=== PATIENT | female | born 1975 | race Caucasian/White ===

== ENCOUNTER 2016-07-19 05:40 | Emergency (ER) | payer SELFPAY ==
--- NOTE | 2016-07-19 08:28 | DIAGNOSTIC IMAGING REPORT ---
PROCEDURE: CT ABDOMEN/PELVIS W/O CONTRAST INDICATION: Right flank and lower quadrant pain, initial encounter TECHNIQUE: Noncontrast axial images were obtained of the entire abdomen and pelvis with sagittal and coronal reformations. COMPARISON: None. FINDINGS: ABDOMEN: Lung base are clear. Heart size is normal. Cholecystectomy. Liver, pancreas, spleen and adrenal glands are normal. Normal kidneys and ureters without evidence of urolithiasis or hydronephrosis. Nonspecific bowel gas pattern. PELVIS: Sub mm right pelvic calcification, nonobstructing calculus versus phlebolith. Normal appendix. Uterus, adnexa and bladder are normal. No inflammatory changes or free fluid. Bones are unremarkable. IMPRESSION: 1. Right pelvic punctate sub mm nonobstructing calculus versus phlebolith 2. Cholecystectomy 3. Otherwise negative CT abdomen/pelvis 4. Results discussed with Dr. Rm All CT scans at this facility use dose modulation, iterative reconstruction, and/or weight-based dosing when appropriate to reduce radiation dose to as low as reasonably achievable.
--- NOTE | 2016-07-19 08:42 | ED NURSING NOTES ---
Clinical Report - Nurses [facility] [address] [place] [address] 07/19/2016 5:42 Patient: MAC MARQUEZ TRIAGE Triage time 0548 AM. Acuity: LEVEL 3. Chief Complaint: ABDOMINAL PAIN, NAUSEA and VOMITING. Alert. No acute distress. --05:52 Eduard Cruz R.N. 05:46 07/19/16. HR: 108. RR: 16. O2 saturation: 98%. Temp: 98.2 F (oral). Pain level now: 02/27. --05:52 Eduard Cruz R.N. 05:58 07/19/16. BP: 159/101 taken on the right arm, via an automated monitor, while lying. --05:58 Eduard Cruz R.N. Weight: 79.8 kg stated. Height/Length: 66 inches Per Patient. BMI: 28.4. --05:48 Eduard Cruz R.N. Medications None. --05:50 Eduard Cruz R.N. Allergies No Known Drug Allergy. --05:50 Eduard Cruz R.N. History Arrived by private vehicle. Historian: patient. Accompanied by family. This is a new problem and onset was gradual. (about 1.5 days). 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 PAST MEDICAL HX: Immunizations: up-to-date. Has had a tubal ligation. Denies current . SOCIAL HX: Current every day light tobacco smoker (cigarette)- less than 1/2 a pack per day. Alcohol use. (no). History of drug use. (no). FALL RISK ASSESSMENT: Fall risk assessment completed. No fall risk identified. NUTRITIONAL RISK ASSESSMENT: The nutritional risk assessment revealed no deficiencies. FUNCTIONAL ASSESSMENT: Functional assessment: no impairments noted. LEARNING NEEDS ASSESSMENT: The learning needs assessment revealed no barriers. SKIN INTEGRITY ASSESSMENT: Skin integrity risk assessment completed. No skin integrity risk identified. --05:52 Eduard Cruz R.N. Last oral intake by patient was liquid this morning (0530). --05:52 Eduard Cruz R.N. ( Patient presents to the ED with symptoms of right sided abdominal pain radiating down her left back and down her left leg. Patient states that the pain started approximately 1.5 days ago and suddenly worsened around 2am this morning. Patient lying on the bed moaning and screaming. Patient reports nausea and vomiting.). --05:56 Eduard Cruz R.N. PROBLEMS: no known problems. ADDITIONAL SURGERIES: C section. Tubal Ligation. --05:51 Eduard Cruz R.N. Interventions ID band on patient. To treatment room. --05:52 Eduard Cruz R.N. PHYSICAL ASSESSMENT Ambulatory to room. GENERAL / NEURO / PSYCH: Alert. Oriented X 4. Appears in no acute distress. HEENT: Mucous membranes are pink. RESPIRATORY: Respirations not labored. Breath sounds within normal limits. CVS: Normal sinus rhythm noted. Capillary refill less than 2 seconds. GI / : The patient has had nausea and diarrhea. Emesis noted. Has vomited numerous times. Abdominal tenderness. SKIN: Skin is warm and dry. --05:53 Eduard Cruz R.N. NURSING PROGRESS NOTES Reassurance given. Call light placed in reach. Side rails up x 2. Bed placed in lowest position. Brakes of bed on. --05:53 Eduard Cruz R.N. 06:10 07/19/2016 Site #1 started via IV in the right forearm with an 22g angiocath, with aseptic technique and good blood return; three attempts. Blood drawn: rainbow set. Labeled in the presence of the patient and sent to the lab. Saline lock flushed with 10 mL saline. --06:16 Juan F Novoa 06:17 07/19/2016 Zofran (Ondansetron HCl) IVP 4 mg given over 2 minute(s) via site #1. Allergies verified and confirmed 5 rights. IV patency established. IV site checked: no pain, redness, or swelling. IV flushed thoroughly pre- and post-medication administration. IVP given by RN. --06:17 Eduard Cruz R.N. 06:17 07/19/2016 Hydromorphone IVP 0.5 mg given over 2 minute(s) via site #1. Allergies verified, confirmed 5 rights and sedative warning given to the patient. IV patency established. IV site checked: no pain, redness, or swelling. IV flushed thoroughly pre- and post-medication administration. IVP given by RN. --06:17 Eduard Cruz R.N. 06:17 07/19/2016 Started IV Fluids IV NS (Saline); bolus of 1000 mL wide open via site #1. Allergies verified and confirmed 5 rights. IV patency established. IV site checked: no pain, redness, or swelling. IV flushed thoroughly pre- and post-medication administration. --06:17 Eduard Cruz R.N. 06:33 07/19/2016 Hydromorphone IVP 0.5 mg given over 2 minute(s) via site #1. Allergies verified, confirmed 5 rights and sedative warning given to the patient. IV patency established. IV site checked: no pain, redness, or swelling. IV flushed thoroughly pre- and post-medication administration. IVP given by RN. --06:33 Eduard Cruz R.N. 06:33 07/19/2016 Hydromorphone IVP Response: no adverse reaction pain is improving. Symptoms have improved the patient feels better. --06:33 Eduard Cruz R.N. 06:35 07/19/2016 Started IV Fluids IV NS (Saline); bolus of 1000 mL wide open via site #1. Allergies verified and confirmed 5 rights. IV patency established. IV site checked: no pain, redness, or swelling. IV flushed thoroughly pre- and post-medication administration. --06:35 Eduard Cruz R.N. 06:35 07/19/2016 Toradol IVP 30 mg given over 2 minute(s) via site #1. Allergies verified and confirmed 5 rights. IV patency established. IV site checked: no pain, redness, or swelling. IV flushed thoroughly pre- and post-medication administration. IVP given by RN. --06:35 Eduard Cruz R.N. 06:50 07/19/2016 Hydromorphone IVP 0.5 mg given over 2 minute(s) via site #1. Allergies verified, confirmed 5 rights and sedative warning given to the patient. IV patency established. IV site checked: no pain, redness, or swelling. IV flushed thoroughly pre- and post-medication administration. IVP given by RN. --06:50 Eduard Cruz R.N. 06:50 07/19/2016 Toradol IVP Response: pain is improving. Symptoms have improved the patient feels better. --06:50 Eduard Cruz R.N. 06:52 07/19/16. Critical value relayed to ED by [facility]. Critical value received by [facility]. K: 2.6. ED physician notifed of critical value. Orders were received. --06:52 Krystyna Rutherford R.N. 06:57 07/19/2016 KCL (Potassium Chloride ER) PO 20 meq given. Allergies verified and confirmed 5 rights. --06:57 Eduard Cruz R.N. 07:08 07/19/2016 Started 20 meq of KCL (Potassium Chloride) IVPB in bag #1 100 mL; over 2 hour(s) via site #1 via IV pump. Allergies verified and confirmed 5 rights. IV patency established. IV site checked: no pain, redness, or swelling. IV flushed thoroughly pre- and post-medication administration. --07:08 Eduard Cruz R.N. 07:09 07/19/16. BP: 162/106. HR: 67. RR: 16. O2 saturation: 97%. Pain level now: 10/28. --07:10 Eduard Cruz R.N. Care transferred and report given (Miranda, RNs). --07:10 Eduard Cruz R.N. 07:12 07/19/16. Care transferred and report received. --07:12 Leonel Saunders R.N. 07:14 07/19/2016 Zofran (Ondansetron HCl) IVP 4 mg given over 2 minute(s) via site #1. Allergies verified and confirmed 5 rights. IV patency established. IV site checked: no pain, redness, or swelling. IV flushed thoroughly pre- and post-medication administration. IVP given by RN. --07:14 Eduard Cruz R.N. 07:19 07/19/16. BP: 156/118 (regular adult cuff) taken on the left arm, while sitting. HR: 68. RR: 14. O2 saturation: 100% on room air. Pain level now: 11/27. Additional comments: pt states "the pain is starting to really come back again". --07:21 Maranda Dominguez R.N. 07:21 07/19/16. Patient informed about reason for wait and about plan of care. --07:21 Maranda Dominguez R.N. 07:27 07/19/16. Patient and family informed about reason for wait and about plan of care. --07:27 Leonel Saunders R.N. 07:28 07/19/16. Cardiac rhythm: normal sinus rhythm; (66). --07:28 Leonel Saunders R.N. 07:30 07/19/16. ( New orders from Dr. Rm for pain meds). --07:30 Leonel Saunders R.N. 07:32 07/19/2016 Hydromorphone IVP 0.5 mg given over 2 minute(s) via site #1. Allergies verified, confirmed 5 rights and sedative warning given to the patient. IV patency established. IV site checked: no pain, redness, or swelling. IV flushed thoroughly pre- and post-medication administration. IVP given by RN. --07:32 Maranda Dominguez R.N. 07:37 07/19/16. ( Notified MD of patients status, and urine results, CT abd without contrast ordered). --07:37 Leonel Saunders R.N. 07:55 07/19/2016 Dilaudid (HYDROmorphone HCl PF) IVP 0.5 mg given over 2 minute(s) via site #1. Allergies verified, confirmed 5 rights and sedative warning given to the patient. IV patency established. IV site checked: no pain, redness, or swelling. IV flushed thoroughly pre- and post-medication administration. IVP given by RN. --07:55 Leonel Saunders R.N. 08:12 07/19/16. BP: 126/84. HR: 73. RR: 15. O2 saturation: 96% on room air. Pain level now: 4/10. Additional comments: pt states her pain has improved. pt is now sitting up in bed and using her phone. she appears more comfortable. . --08:16 Maranda Dominguez R.N. 07:56 07/19/2016 IV Fluids IV NS Discontinued: bag #1 infused. Total amount infused: 1000 mL. IV patency established. IV site checked: no pain, redness, or swelling. IV flushed thoroughly. --08:21 Leonel Saunders R.N. <<STRICKEN ENTRY-- 07:59 07/19/2016 Started bag #1 1000 mL IV Fluids IV NS (Saline); at 1000 mL/hr over 1 hour(s) via site #1. Allergies verified and confirmed 5 rights. IV patency established. IV site checked: no pain, redness, or swelling. IV flushed thoroughly pre- and post-medication administration. Completed per protocol. --08:24 Leonel Saunders R.N. --END STRIKE>> Correction. --08:24 Leonel Saunders R.N. 07:59 07/19/2016 Started bag #2 1000 IV Fluids IV NS (Saline); at 1000 mL/hr over 1 hour(s) via site #1. Allergies verified and confirmed 5 rights. IV patency established. IV site checked: no pain, redness, or swelling. IV flushed thoroughly pre- and post-medication administration. Completed per protocol. --08:24 Leonel Saunders R.N. 08:00 07/19/16. Patient transported to [place] by stretcher with tech. --08:00 Leonel Saunders R.N. 08:06 07/19/16. Patient returned from CT by stretcher with tech. --08:06 Leonel Saunders R.N. 08:16 03/01/17. Two patient identifiers checked. Call light placed in reach. Side rails up x 2. Bed placed in lowest position. Brakes of bed on. Patient informed about reason for wait and about plan of care. ( IV potassium and NS restarted upon pt's return from CT.). --08:16 Maranda Dominguez R.N. 08:38 07/19/16. BP: 126/84. HR: 76. RR: 16. O2 saturation: 97% on room air. --08:39 Leonel Saunders R.N. 08:38 07/19/16. Cardiac rhythm: normal sinus rhythm; (76). --08:39 Leonel Saunders R.N. 08:39 07/19/16. Reassessment after medication administered. She has had no adverse reaction. Overall patient status is improved- she states feels better. --08:39 Leonel Saunders R.N. 08:39 07/19/16. Patient and family informed about reason for wait and about plan of care. --08:39 Leonel Saunders R.N. 09:17 07/19/2016 Hydromorphone IVP 0.5 mg given over 2 minute(s) via site #1. Confirmed 5 rights and sedative warning given to the patient. IV patency established. IV site checked: no pain, redness, or swelling. IV flushed thoroughly pre- and post-medication administration. IVP given by RN. --09:17 Maranda Dominguez R.N. 09:27 07/19/2016 IV Fluids IV NS Discontinued: bag #2 completed upon discharge. Total amount infused: 700 mL. IV patency established. IV site checked: no pain, redness, or swelling. IV flushed thoroughly. --09:37 Maranda Dominguez R.N. 09:27 07/19/2016 KCL IVPB Discontinued: completed upon discharge. Total amount infused: 100 mL. IV patency established. IV site checked: no pain, redness, or swelling. IV flushed thoroughly. --09:38 Maranda Dominguez R.N. DISPOSITION / DISCHARGE 09:28 07/19/2016 Site #1 removed upon discharge. Bandaid applied. --09:33 Maranda Dominguez R.N. 09:30. Departure time: 09:30. The goals identified in the patient's plan of care were met. No learning barriers present. Discharge instructions provided and reviewed with the patient. Reviewed warnings. Reviewed medication(s). Treatments reviewed. Reviewed need for increased fluid intake. Patient verbalized understanding. Written instructions provided in [place] Leonean. The patient was discharged by the physician. She was discharged home. FALL RISK ASSESSMENT: Fall risk assessment completed. No fall risk identified. --09:34 Maranda Dominguez R.N. <<STRICKEN ENTRY-- 09:32 07/19/16. BP: 105/78. HR: 68. RR: 15. O2 saturation: 100% on room air. Pain level now: 08/28. --09:34 Maranda Dominguez R.N. --END STRIKE>> Correction. --09:34 Maranda Dominguez R.N. 09:30 07/19/16. BP: 105/78. HR: 68. RR: 15. O2 saturation: 100%. Pain level now: 08/28. --09:35 Maranda Dominguez R.N. 09:39 07/19/16. --09:39 Maranda Dominguez R.N. 09:38 07/19/16. Temp: deferred. --09:39 Maranda Dominguez R.N. Locked/Released at 07/19/2016 9:48 by Maranda Dominguez R.N.
--- NOTE | 2016-07-19 08:42 | ED CLINICAL REPORT ---
Clinical Report - Physicians/Mid Levels [facility] [address] [place] [address] 07/19/2016 5:42 Patient: MAC MARQUEZ Time Seen: 05:55. Arrived- By private vehicle. Historian- patient. HISTORY OF PRESENT ILLNESS Chief Complaint: ABDOMINAL PAIN. It is described as "pain" and sharp and it is described as located in the right flank and radiating to the abdomen. This started about 1 1/2 days ago and is still present. It was abrupt in onset and has been constant and waxing/waning. At its maximum, severity described as severe. When seen in the E.D., severity described as severe. Modifying factors. Not worsened by anything. Not relieved by anything. The patient has had nausea. She has had vomiting. The vomiting has occurred several times. No blood-tinged emesis, coffee-grounds emesis or frankly bloody emesis. Has not had moderate vomiting. REVIEW OF SYSTEMS No chills, fever, calf pain, chest pain or cough. No difficulty breathing, pedal edema, palpitations, black stools or bloody stools. She has experienced sweats. She has had mild loose stools. She has had mild pain during urination. All systems otherwise negative, except as recorded above. PAST HISTORY Problems: no known problems. Additional Surgeries: C section. Tubal Ligation. Medications: None. Allergies: No Known Drug Allergy. SOCIAL HISTORY Current every day light tobacco smoker (cigarette)- less than 1/2 a pack per day. No alcohol use or drug use. ADDITIONAL NOTES The nursing notes have been reviewed. PHYSICAL EXAM Vital Signs: 07/19/2016 05:58 BP: 159/101. 07/19/2016 05:46 HR: 108. RR: 16. O2 saturation: 98%. Temp: 98.2 F. Pain level now: 02/27. Have been reviewed. Appearance: Alert. Appears to be in pain. Eyes: Pupils equal, round and reactive to light. ENT: Pharynx normal. Neck: Normal inspection. Neck supple. CVS: Normal heart rate and rhythm. Heart sounds normal. Respiratory: No respiratory distress. Breath sounds normal. Abdomen: Soft and nontender. Bowel sounds normal. No organomegaly. No mass. Back: Mild CVA tenderness on the right. Skin: Skin warm and dry. Normal skin color. Normal skin turgor. Extremities: Extremities exhibit normal ROM. No calf tenderness. No lower extremity edema. LABS, X-RAYS, AND EKG Abdominal CT: IMPRESSION: 1. Right pelvic punctate sub mm nonobstructing calculus versus phlebolith 2. Cholecystectomy 3. Otherwise negative CT abdomen/pelvis. The study was interpreted contemporaneously by me and discussed with the radiologist. Laboratory Tests: UA-Culture if indicated: (PAGE: 07/19/2016 06:44) ( [facility] 07/19/2016 08:39) Final results Test Result Flag Units (Reference) URINE COLOR YELLOW URINE APPEARANCE CLEAR URINE GLUCOSE NEGATIVE (NEGATIVE) URINE BILIRUBIN NEGATIVE (NEGATIVE) URINE KETONE NEGATIVE (NEGATIVE) URINE SPECIFIC GRAVITY >= 1.030 (1.010-1.030) URINE PH 5.5 (5.0-8.0) URINE PROTEIN 1+ (NEGATIVE) URINE UROBILINOGEN 0.2 EU/dL (0.2-1.0) URINE NITRITE NEGATIVE (NEGATIVE) URINE BLOOD 2+ (NEGATIVE) URINE LEUK ESTERASE TRACE (NEGATIVE) URINE RBC 5-10 rbc/hpf (0-1) URINE WBC 1-3 wbc/hpf (0-1) URINE EPITHELIAL CELLS 1-3 EPI/hpf (0-5) URINE BACTERIA MODERATE (2+ TO 3+) (NONE SEEN) URINE COMMENT CULTURE INDICATED URINE CULTURES ARE SET-UP BASED ON THE FOLLOWING CRITERIA:POSITIVE NITRITEPOSITIVE LEUKOCYTE ESTERASEGREATER THAN 10 WHITE BLOOD CELLSMODERATE (2+) OR GREATER BACTERIA Urine: (PAGE: 07/19/2016 06:44) ( [facility] 07/19/2016 07:18) Final results Test Result Flag Units (Reference) URINE NEGATIVE CBC w Diff: (PAGE: 07/19/2016 06:10) ( [facility] 07/19/2016 06:37) Final results Test Result Flag Units (Reference) WHITE BLOOD COUNT 11.0 K/uL (4.5-11.5) RED BLOOD COUNT 5.19 M/uL (4.00-5.20) HEMOGLOBIN 15.3 gm/dL (12.0-16.0) HEMATOCRIT 46.1 H % (36.0-46.0) MEAN CELL VOLUME 89 fL (80-100) MEAN CORPUSCULAR HGB 30 pg (26-34) MEAN CORPUSCULAR HGB CONC 33 g/dL (31-37) RED CELL DISTRIBUTION WIDTH 13.2 % (11.6-14.8) PLATELET COUNT 307 K/uL (150-400) NEUTROPHIL % 74.0 % (50-75) LYMPH % 16.9 L % (25-40) MONO % 7.2 % (3-14) EOSINOPHIL % 1.3 % (0-4) BASOPHIL % 0.6 % (0-2) CMP: (PAGE: 07/19/2016 06:10) ( MsgRcvd 07/19/2016 06:47) Final results Test Result Flag Units (Reference) GLUCOSE 158 H mg/dL (70-110) BUN 17 mg/dL (7-18) CREATININE 1.1 mg/dL (0.6-1.3) Estimated GFR 58.77 mL/min Estimated GFR- >60 mL/min Note: Persistent reduction over 3 months in eGFR<60 mL/min/1.73 m2 defines CKD. Patients with eGFR values>=60 mL/min/1.73 m2 may also have CKD if evidence ofpersistent proteinuria. Additional information may be foundat [email or web address]. SODIUM 136 mmol/L (136-145) POTASSIUM 2.5 *L mmol/L (3.5-5.1) CRITICAL RESULTS CALLEDCalled to LINDA 07/19/16 0646Were 2 patient identifiers used? YWas the result read back? Y CHLORIDE 99 mmol/L (98-107) CARBON DIOXIDE 20 L mmol/L (21-32) CALCIUM 8.7 mg/dL (8.5-10.1) TOTAL PROTEIN 7.8 g/dL (6.4-8.2) ALBUMIN 4.3 g/dL (3.3-5.0) BILIRUBIN, TOTAL 0.6 mg/dL (0.0-1.0) ALKALINE PHOSPHATASE 61 U/L (46-116) AST (SGOT) 9 L U/L (15-37) ALT (SGPT) 26 U/L (12-78) LIPASE 163 U/L (73-393) AMYLASE 40 U/L (25-115) MAGNESIUM 2.1 mg/dL (1.8-2.4) . PROGRESS AND PROCEDURES Course of Care: Patient is stable. Patient/family counseled. Old medical records ordered. Old records unavailable. Disposition: Discharged. Condition: stable. CLINICAL IMPRESSION Acute right flank pain Hypokalemia Possible ureterolithiasis. INSTRUCTIONS No driving or operating machinery while taking medication. Sedative medication was given during your visit. Drink plenty of fluids. Warnings: Further evaluation is necessary. GENERAL WARNINGS: Return or contact your physician immediately if your condition worsens or changes unexpectedly, if not improving as expected, or if other problems arise. Prescription Medications: Hydrocodone/APAP 5mg/325mg: take 1 to 2 orally every 6 hours as needed for pain. Dispense fifteen (15). No refills. Toradol 10 mg tablets: Take 1 tablet orally every 6 hours as needed. Dispense fifteen (15). No refills. Substitution is permissible. Potassium Chloride 20 mEq: take 1 orally every 24 hours - No refills. (3 pills) Follow-up: Follow up with a urologist- as recommended by your primary care physician. Understanding of the discharge instructions verbalized by patient. Follow-up with: [facility], , , [address], [facility], [id number] Follow up tomorrow. Call for an appointment. (Electronically signed by Maxim Rm MD 07/19/2016 22:46)
--- NOTE | 2016-07-19 08:42 | ED ORDER SUMMARY ---
..... Patient: MAC MARQUEZ OrderSheet [facility] VisitID: [id number] [address] [place] [address] 41y, F Registration Date/Time: 07/19/2016 ORDER SHEET Weight: 79.8 kg (stated) Allergies: No Known Drug Allergy GENERAL ORDERS: CBC w Diff Urgent (06:02 07/19/2016 HOShaughnessy R.N. verbal order read back to Siva DE LEON) (Ack 6:04 AMcQuoid ER Tech1) (6:17 HOShaughnessy R.N.) CMP Urgent (06:02 07/19/2016 HOShaughnessy R.N. verbal order read back to Siva DE LEON) (Ack 6:04 AMcQuoid ER Tech1) (6:17 HOShaughnessy R.N.) Amylase Urgent (06:02 07/19/2016 HOShaughnessy R.N. verbal order read back to Siva DE LEON) (Ack 6:04 AMcQuoid ER Tech1) (6:17 HOShaughnessy R.N.) Lipase Urgent (06:02 07/19/2016 HOShaughnessy R.N. verbal order read back to Siva DE LEON) (Ack 6:04 AMcQuoid ER Tech1) (6:17 HOShaughnessy R.N.) UA-Culture if indicated Urgent (06:02 07/19/2016 HOShaughnessy R.N. verbal order read back to Siva DE LEON) (Ack 6:04 AMcQuoid ER Tech1) (6:50 HOShaughnessy R.N.) Urine Urgent (06:02 07/19/2016 HOShaughnessy R.N. verbal order read back to Siva DE LEON) (Ack 6:04 AMcQuoid ER Tech1) (6:50 HOShaughnessy R.N.) CT Abd/Pel wo Cont Urgent (07:35 07/19/2016 JBoardley R.N. verbal order read back to Siva DE LEON) (Ack 7:39 Trever) (8:06 JBoardley R.N.) MEDICATION ORDERS: Saline Lock (Solution 0.9 %) 10 mL Syringe (NOW) (06:03 07/19/2016 HOShaughdenisey R.N. verbal order read back to Siva DE LEON) (Cancelled: Wrong Order6:18 HOShaughnessy R.N.) KCl PO 20 meq (NOW) (06:52 07/19/2016 Siva DE LEON) (6:57 HOShaughnessy R.N.) IV FLUIDS: Zofran IV 4 mg (NOW) (06:01 07/19/2016 HOShaughnessy R.N. verbal order read back to Siva DE LEON) (6:17 HOShaughnessy R.N.) HYDROmorphone IV 0.5 mg (q 10 minutes for pain control up to 3) (06:07/19/2016 HOShaughspring R.N. verbal order read back to Siva DE LEON) (6:17 HOShaughnessy R.N.) IV NS with Folic Acid 1 mg/L: initial bolus none -, then none - for X1 (NOW); Alexandru (06:03 07/19/2016 HOShaughnessy R.N. verbal order read back to Siva DE LEON) (6:17 HOShaughnessy R.N.) (Cancelled: Wrong Order6:33 HOShaughnessy R.N.) IV NS with Normal Saline 1 Liter: initial bolus 1000 mL (1000 mL/hr), then 1000 mL/hr for X1 (NOW); Alexandru (06:34 07/19/2016 HOShaughsprign R.N. verbal order read back to Siva DE LEON) (6:35 HOShaughnessy R.N.) Toradol IV 30 mg (NOW) (06:34 07/19/2016 HOShaughdenisey R.N. verbal order read back to Siva DE LEON) (6:35 HOShaughnessy R.N.) KCl IV 20 meq/100mL (Run no faster than 10 units/hr, HIGH ALERT MEDICATION, NOW, Run no faster than 10 mEq/hr) (06:52 07/19/2016 Siva DE LEON) (7:08 HOShaughnessy R.N.) Dilaudid IV 0.5 mg (May Repeat q 15 minutes for total of 3 mg) (07:25 07/19/2016 Leena DcN. verbal order read back to Siva DE LEON) (Ack 7:27 Leena R.NVero) (7:55 Leena Rodriguez.NVero) ORDER SHEET NOTES: [Electronically signed by Maranda Dominguez R.N. (09:48 07/19/2016)] [Electronically signed by Maxim Rm MD (22:46 07/19/2016)] [Electronically locked/signed by Maranda Dominguez R.N. (09:48 07/19/2016)]
--- NOTE | 2016-07-19 08:42 | ED CLINICAL REPORT ---
Clinical Report - Physicians/Mid Levels [facility] [address] [place] [address] 07/19/2016 5:42 Patient: MAC MARQUEZ Time Seen: 05:55. Arrived- By private vehicle. Historian- patient. HISTORY OF PRESENT ILLNESS Chief Complaint: ABDOMINAL PAIN. It is described as "pain" and sharp and it is described as located in the right flank and radiating to the abdomen. This started about 1 1/2 days ago and is still present. It was abrupt in onset and has been constant and waxing/waning. At its maximum, severity described as severe. When seen in the E.D., severity described as severe. Modifying factors. Not worsened by anything. Not relieved by anything. The patient has had nausea. She has had vomiting. The vomiting has occurred several times. No blood-tinged emesis, coffee-grounds emesis or frankly bloody emesis. Has not had moderate vomiting. REVIEW OF SYSTEMS No chills, fever, calf pain, chest pain or cough. No difficulty breathing, pedal edema, palpitations, black stools or bloody stools. She has experienced sweats. She has had mild loose stools. She has had mild pain during urination. All systems otherwise negative, except as recorded above. PAST HISTORY Problems: no known problems. Additional Surgeries: C section. Tubal Ligation. Medications: None. Allergies: No Known Drug Allergy. SOCIAL HISTORY Current every day light tobacco smoker (cigarette)- less than 1/2 a pack per day. No alcohol use or drug use. ADDITIONAL NOTES The nursing notes have been reviewed. PHYSICAL EXAM Vital Signs: 07/19/2016 05:58 BP: 159/101. 07/19/2016 05:46 HR: 108. RR: 16. O2 saturation: 98%. Temp: 98.2 F. Pain level now: 02/27. Have been reviewed. Appearance: Alert. Appears to be in pain. Eyes: Pupils equal, round and reactive to light. ENT: Pharynx normal. Neck: Normal inspection. Neck supple. CVS: Normal heart rate and rhythm. Heart sounds normal. Respiratory: No respiratory distress. Breath sounds normal. Abdomen: Soft and nontender. Bowel sounds normal. No organomegaly. No mass. Back: Mild CVA tenderness on the right. Skin: Skin warm and dry. Normal skin color. Normal skin turgor. Extremities: Extremities exhibit normal ROM. No calf tenderness. No lower extremity edema. LABS, X-RAYS, AND EKG Abdominal CT: IMPRESSION: 1. Right pelvic punctate sub mm nonobstructing calculus versus phlebolith 2. Cholecystectomy 3. Otherwise negative CT abdomen/pelvis. The study was interpreted contemporaneously by me and discussed with the radiologist. Laboratory Tests: UA-Culture if indicated: (PAGE: 07/19/2016 06:44) ( [facility] [place] 08:39) Final results Test Result Flag Units (Reference) URINE COLOR YELLOW URINE APPEARANCE CLEAR URINE GLUCOSE NEGATIVE (NEGATIVE) URINE BILIRUBIN NEGATIVE (NEGATIVE) URINE KETONE NEGATIVE (NEGATIVE) URINE SPECIFIC GRAVITY >= 1.030 (1.010-1.030) URINE PH 5.5 (5.0-8.0) URINE PROTEIN 1+ (NEGATIVE) URINE UROBILINOGEN 0.2 EU/dL (0.2-1.0) URINE NITRITE NEGATIVE (NEGATIVE) URINE BLOOD 2+ (NEGATIVE) URINE LEUK ESTERASE TRACE (NEGATIVE) URINE RBC 5-10 rbc/hpf (0-1) URINE WBC 1-3 wbc/hpf (0-1) URINE EPITHELIAL CELLS 1-3 EPI/hpf (0-5) URINE BACTERIA MODERATE (2+ TO 3+) (NONE SEEN) URINE COMMENT CULTURE INDICATED URINE CULTURES ARE SET-UP BASED ON THE FOLLOWING CRITERIA:POSITIVE NITRITEPOSITIVE LEUKOCYTE ESTERASEGREATER THAN 10 WHITE BLOOD CELLSMODERATE (2+) OR GREATER BACTERIA Urine: (PAGE: 07/19/2016 06:44) ( [facility] [place] 07/19/2016 07:18) Final results Test Result Flag Units (Reference) URINE NEGATIVE CBC w Diff: (PAGE: 07/19/2016 06:10) ( MsgRcvd 07/19/2016 06:37) Final results Test Result Flag Units (Reference) WHITE BLOOD COUNT 11.0 K/uL (4.5-11.5) RED BLOOD COUNT 5.19 M/uL (4.00-5.20) HEMOGLOBIN 15.3 gm/dL (12.0-16.0) HEMATOCRIT 46.1 H % (36.0-46.0) MEAN CELL VOLUME 89 fL (80-100) MEAN CORPUSCULAR HGB 30 pg (26-34) MEAN CORPUSCULAR HGB CONC 33 g/dL (31-37) RED CELL DISTRIBUTION WIDTH 13.2 % (11.6-14.8) PLATELET COUNT 307 K/uL (150-400) NEUTROPHIL % 74.0 % (50-75) LYMPH % 16.9 L % (25-40) MONO % 7.2 % (3-14) EOSINOPHIL % 1.3 % (0-4) BASOPHIL % 0.6 % (0-2) CMP: (PAGE: 07/19/2016 06:10) ( MsgRcvd 07/19/2016 06:47) Final results Test Result Flag Units (Reference) GLUCOSE 158 H mg/dL (70-110) BUN 17 mg/dL (7-18) CREATININE 1.1 mg/dL (0.6-1.3) Estimated GFR 58.77 mL/min Estimated GFR- >60 mL/min Note: Persistent reduction over 3 months in eGFR<60 mL/min/1.73 m2 defines CKD. Patients with eGFR values>=60 mL/min/1.73 m2 may also have CKD if evidence ofpersistent proteinuria. Additional information may be foundat [email or web address]. SODIUM 136 mmol/L (136-145) POTASSIUM 2.5 *L mmol/L (3.5-5.1) CRITICAL RESULTS CALLEDCalled to LINDA 07/19/16 0646Were 2 patient identifiers used? YWas the result read back? Y CHLORIDE 99 mmol/L (98-107) CARBON DIOXIDE 20 L mmol/L (21-32) CALCIUM 8.7 mg/dL (8.5-10.1) TOTAL PROTEIN 7.8 g/dL (6.4-8.2) ALBUMIN 4.3 g/dL (3.3-5.0) BILIRUBIN, TOTAL 0.6 mg/dL (0.0-1.0) ALKALINE PHOSPHATASE 61 U/L (46-116) AST (SGOT) 9 L U/L (15-37) ALT (SGPT) 26 U/L (12-78) LIPASE 163 U/L (73-393) AMYLASE 40 U/L (25-115) MAGNESIUM 2.1 mg/dL (1.8-2.4) . PROGRESS AND PROCEDURES Course of Care: Patient is stable. Patient/family counseled. Old medical records ordered. Old records unavailable. Disposition: Discharged. Condition: stable. CLINICAL IMPRESSION Acute right flank pain Hypokalemia Possible ureterolithiasis. INSTRUCTIONS No driving or operating machinery while taking medication. Sedative medication was given during your visit. Drink plenty of fluids. Warnings: Further evaluation is necessary. GENERAL WARNINGS: Return or contact your physician immediately if your condition worsens or changes unexpectedly, if not improving as expected, or if other problems arise. Prescription Medications: Hydrocodone/APAP 5mg/325mg: take 1 to 2 orally every 6 hours as needed for pain. Dispense fifteen (15). No refills. Toradol 10 mg tablets: Take 1 tablet orally every 6 hours as needed. Dispense fifteen (15). No refills. Substitution is permissible. Potassium Chloride 20 mEq: take 1 orally every 24 hours - No refills. (3 pills) Follow-up: Follow up with a urologist- as recommended by your primary care physician. Understanding of the discharge instructions verbalized by patient. Follow-up with: [facility], , , [address], [facility], [address] Follow up tomorrow. Call for an appointment. (Electronically signed by Maxim Rm MD 07/19/2016 22:46)
--- NOTE | 2016-07-19 08:42 | ED ORDER SUMMARY ---
..... Patient: MAC MARQUEZ OrderSheet [facility] VisitID: [id number] [address] [place] [address] 41y, F Registration Date/Time: 07/19/2016 ORDER SHEET Weight: 79.8 kg (stated) Allergies: No Known Drug Allergy GENERAL ORDERS: CBC w Diff Urgent (06:02 07/19/2016 HOShaughnessy R.N. verbal order read back to Siva DE LEON) (Ack 6:04 AMcQuoid ER Tech1) (6:17 HOShaughnessy R.N.) CMP Urgent (06:02 07/19/2016 HOShaughnessy R.N. verbal order read back to Siva DE LEON) (Ack 6:04 AMcQuoid ER Tech1) (6:17 HOShaughnessy R.N.) Amylase Urgent (06:02 07/19/2016 HOShaughnessy R.N. verbal order read back to Siva DE LEON) (Ack 6:04 AMcQuoid ER Tech1) (6:17 HOShaughnessy R.N.) Lipase Urgent (06:02 07/19/2016 HOShaughnessy R.N. verbal order read back to Siva DE LEON) (Ack 6:04 AMcQuoid ER Tech1) (6:17 HOShaughnessy R.N.) UA-Culture if indicated Urgent (06:02 07/19/2016 HOShaughnessy R.N. verbal order read back to Siva DE LEON) (Ack 6:04 AMcQuoid ER Tech1) (6:50 HOShaughnessy R.N.) Urine Urgent (06:02 07/19/2016 HOShaughnessy R.N. verbal order read back to Siva DE LEON) (Ack 6:04 AMcQuoid ER Tech1) (6:50 HOShaughnessy R.N.) CT Abd/Pel wo Cont Urgent (07:35 07/19/2016 JBoardley R.N. verbal order read back to Siva DE LEON) (Ack 7:39 Trever) (8:06 JBoardley R.N.) MEDICATION ORDERS: Saline Lock (Solution 0.9 %) 10 mL Syringe (NOW) (06:03 07/19/2016 HOShaughdenisey R.N. verbal order read back to Siva DE LEON) (Cancelled: Wrong Order6:18 HOShaughnessy R.N.) KCl PO 20 meq (NOW) (06:52 07/19/2016 Siva DE LEON) (6:57 HOShaughnessy R.N.) IV FLUIDS: Zofran IV 4 mg (NOW) (06:01 07/19/2016 HOShaughnessy R.N. verbal order read back to Siva DE LEON) (6:17 HOShaughnessy R.N.) HYDROmorphone IV 0.5 mg (q 10 minutes for pain control up to 3) (06:07/19/2016 HOShaughspring R.N. verbal order read back to Siva DE LEON) (6:17 HOShaughnessy R.N.) IV NS with Folic Acid 1 mg/L: initial bolus none -, then none - for X1 (NOW); Alexandru (06:03 07/19/2016 HOShaughnessy R.N. verbal order read back to Siva DE LEON) (6:17 HOShaughnessy R.N.) (Cancelled: Wrong Order6:33 HOShaughnessy R.N.) IV NS with Normal Saline 1 Liter: initial bolus 1000 mL (1000 mL/hr), then 1000 mL/hr for X1 (NOW); Alexandru (06:34 07/19/2016 HOShaughspring R.N. verbal order read back to Siva DE LEON) (6:35 HOShaughnessy R.N.) Toradol IV 30 mg (NOW) (06:34 07/19/2016 HOShaughdenisey R.N. verbal order read back to Siva DE LEON) (6:35 HOShaughnessy R.N.) KCl IV 20 meq/100mL (Run no faster than 10 units/hr, HIGH ALERT MEDICATION, NOW, Run no faster than 10 mEq/hr) (06:52 07/19/2016 Siva DE LEON) (7:08 HOShaughnessy R.N.) Dilaudid IV 0.5 mg (May Repeat q 15 minutes for total of 3 mg) (07:25 07/19/2016 Leena DcN. verbal order read back to Siva DE LEON) (Ack 7:27 Leena R.NVero) (7:55 Leena Rodriguez.NVero) ORDER SHEET NOTES: [Electronically signed by Maranda Dominguez R.N. (09:48 07/19/2016)] [Electronically signed by Maxim Rm MD (22:46 07/19/2016)] [Electronically locked/signed by Maranda Dominguez R.N. (09:48 07/19/2016)]
--- NOTE | 2016-07-19 22:46 | ED DISCHARGE INSTRUCTIONS ---
Patient: MAC MARQUEZ General Instructions [facility] VisitID: [id number] [address] [place] [address] 41y, F Registration Date/Time: 07/19/2016 Acute right flank pain Hypokalemia INSTRUCTIONS No driving or operating machinery while taking medication. Sedative medication was given during your visit. Drink plenty of fluids. Warnings: Further evaluation is necessary. GENERAL WARNINGS: Return or contact your physician immediately if your condition worsens or changes unexpectedly, if not improving as expected, or if other problems arise. Prescription Medications: Hydrocodone/APAP 5mg/325mg: take 1 to 2 orally every 6 hours as needed for pain. Dispense fifteen (15). No refills. Toradol 10 mg tablets: Take 1 tablet orally every 6 hours as needed. Dispense fifteen (15). No refills. Substitution is permissible. Potassium Chloride 20 mEq: take 1 orally every 24 hours - No refills. (3 pills) Follow-up: Follow up with a urologist- as recommended by your primary care physician. Understanding of the discharge instructions verbalized by patient. Follow-up with: [facility], , , [address], , [place], [id number] Follow up tomorrow. Call for an appointment. ADDITIONAL INFORMATION Flank Pain[Uncertain Cause] The flank is the area between the upper abdomen and the back. Pain here is often related to the kidneyan infection or a kidney stone. Other causes of flank pain include spinal arthritis, pinched nerve from a disk injury, back muscle strain or spasm. The cause of your flank pain is not certain and further tests may be needed. Home Care: You may use acetaminophen (Tylenol) or ibuprofen (Motrin, Advil) to control pain, unless another medicine was prescribed. [NOTE: If you have chronic liver or kidney disease or ever had a stomach ulcer or GI bleeding, talk with your doctor before using these medicines.] If the cause of your pain is coming from the muscles, ice or heat may give relief. During the first two days after injury, apply an ICE PACK to the painful area for 20 minutes every 2-4 hours. This will reduce swelling and pain. HEAT (hot shower, hot bath or heating pad) works well for muscle spasm. You can start with ice, then switch to heat after two days. Some patients feel best alternating ice and heat treatments. Use the one method that feels the best to you. Follow Up with your doctor or as advised by our staff for further evaluation if your symptoms are not improving over the next few days. Return Promptly or contact your doctor if any of the following occur: Repeated vomiting Fever of 100.4F (38C) or higher, or as directed by your healthcare provider Increasing flank pain Pain that spreads to the front of the abdomen Dizziness, weakness or fainting Blood in your urine Burning with urination or frequent urination Increasing pain in the leg Numbness or weakness in the leg Kidney Stone (W/ Colic) The sharp cramping pain and nausea/vomiting that you have is due to a small stone which has formed in the kidney and is now passing down a narrow tube (ureter) on its way to your bladder. Once it reaches your bladder, the pain will stop. The stone may pass in your urine stream in one piece. [The size may be 1/16" to 1/4" (1-6mm)]. Or, the stone may also break up into anaya fragments which you may not even notice. Once you have had a kidney stone, you are at risk for developing another one in the future. Home Care: Drink plenty of fluids (at least 8 to 10 glasses of water a day). Most stones will pass on their own, but may take from a few hours to a few days. Sometimes the stone is too large to pass by itself and special methods will have to be used to remove the stone. Each time you urinate, do so in a jar. Pour the urine from the jar through the strainer and into the toilet. Continue doing this until 24 hours after your pain stops. By then, if there was a kidney stone, it should pass from your bladder. Some stones dissolve into sand-like particles and pass right through the strainer. In that case, you wont ever see a stone. Save any stone that you find in the strainer and bring it to your doctor for analysis. It may be possible to prevent certain types of stones from forming. Therefore, it is important to know what kind of stone you have. Try to stay as active as possible since this will help the stone pass. Do not stay in bed unless your pain prevents you from getting up. You may notice a red, pink or brown color to your urine. This is normal while passing a kidney stone. Follow Up with your doctor or return to this facility if the pain lasts more than 48 hours. Get Prompt Medical Attention if any of the following occur: Pain that is not controlled by the medicine given Repeated vomiting or unable to keep down fluids Weakness, dizziness or fainting Fever of 100.4F (38C) or higher, or as directed by your healthcare provider Passage of solid red or brown urine (can't see through it) or urine with lots of blood clots Unable to pass urine for 8 hours and increasing bladder pressure Hypokalemia Hypokalemia means a low level of potassium in the blood. This most often occurs in patients who take diuretics (water pills). It can also occur due to severe vomiting or diarrhea. A mild case usually causes no symptoms. It is only found with blood testing. More severe potassium loss causes generalized weakness, muscle or abdominal cramping, heart palpitations (rapid or irregular heartbeats) and low blood pressure. Home Care: 1) Take any potassium supplements prescribed. 2) Eat foods rich in potassium. The highest amount is found in artichoke, baked potatoes, spinach, cantaloupe, honeydew melon, cod, halibut, salmon, and scallops. White, red, or dennis beans are also very good sources. A modest amount is found in orange juice, bananas, carrots, and tomato juice. 3) Certain types of diuretics (water pills), such as Lasix (furosemide), require that you take potassium supplements for as long as you take the diuretic pills. If you are taking a diuretic, discuss the need for potassium supplements with your doctor. Follow Up with your doctor for a repeat blood test within the next week or as advised by our staff. Get Prompt Medical Attention if any of the following occur: -- Increased weakness -- Feeling dizzy -- Irregular heartbeat, extra beats or very fast heart rate -- Fainting spell Hydrocodone Bitartrate, Acetaminophen Oral tablet What is this medicine? ACETAMINOPHEN; HYDROCODONE (a set a HARJINDER master fen; manish droe KOE done) is a pain reliever. It is used to treat mild to moderate pain. How should I use this medicine? Take this medicine by mouth. Swallow it with a full glass of water. Follow the directions on the prescription label. If the medicine upsets your stomach, take the medicine with food or milk. Do not take more than you are told to take. Talk to your middleware solutions architect regarding the use of this medicine in children. This medicine is not approved for use in children. What side effects may I notice from receiving this medicine? Side effects that you should report to your doctor or health patient care coordinator as soon as possible: allergic reactions like skin rash, itching or hives, swelling of the face, lips, or tongue breathing problems confusion feeling faint or lightheaded, falls stomach pain yellowing of the eyes or skin Side effects that usually do not require medical attention (report to your doctor or health patient care coordinator if they continue or are bothersome): nausea, vomiting stomach upset What may interact with this medicine? alcohol antihistamines isoniazid medicines for depression, anxiety, or psychotic disturbances medicines for sleep muscle relaxants naltrexone narcotic medicines (opiates) for pain phenobarbital ritonavir tramadol What if I miss a dose? If you miss a dose, take it as soon as you can. If it is almost time for your next dose, take only that dose. Do not take double or extra doses. Where should I keep my medicine? Keep out of the reach of children. This medicine can be abused. Keep your medicine in a safe place to protect it from theft. Do not share this medicine with anyone. Selling or giving away this medicine is dangerous and against the law. Store at room temperature between 15 and 30 degrees C (59 and 86 degrees F). Protect from light. Keep container tightly closed. Throw away any unused medicine after the expiration date. Discard unused medicine and used packaging carefully. Pets and children can be harmed if they find used or lost packages. What should I tell my health care provider before I take this medicine? They need to know if you have any of these conditions: brain tumor Crohn's disease, inflammatory bowel disease, or ulcerative colitis drink more than 3 alcohol-containing drinks per day drug abuse or addiction head injury heart or circulation problems kidney disease or problems going to the bathroom liver disease lung disease, asthma, or breathing problems an unusual or allergic reaction to acetaminophen, hydrocodone, other opioid analgesics, other medicines, foods, dyes, or preservatives or trying to get breast-feeding What should I watch for while using this medicine? Tell your doctor or health patient care coordinator if your pain does not go away, if it gets worse, or if you have new or a different type of pain. You may develop tolerance to the medicine. Tolerance means that you will need a higher dose of the medicine for pain relief. Tolerance is normal and is expected if you take the medicine for a long time. Do not suddenly stop taking your medicine because you may develop a severe reaction. Your body becomes used to the medicine. This does NOT mean you are addicted. Addiction is a behavior related to getting and using a drug for a non-medical reason. If you have pain, you have a medical reason to take pain medicine. Your doctor will tell you how much medicine to take. If your doctor wants you to stop the medicine, the dose will be slowly lowered over time to avoid any side effects. You may get drowsy or dizzy when you first start taking the medicine or change doses. Do not drive, use machinery, or do anything that may be dangerous until you know how the medicine affects you. Stand or sit up slowly. There are different types of narcotic medicines (opiates) for pain. If you take more than one type at the same time, you may have more side effects. Give your health care provider a list of all medicines you use. Your doctor will tell you how much medicine to take. Do not take more medicine than directed. Call emergency for help if you have problems breathing. The medicine will cause constipation. Try to have a bowel movement at least every 2 to 3 days. If you do not have a bowel movement for 3 days, call your doctor or health patient care coordinator. Too much acetaminophen can be very dangerous. Do not take Tylenol (acetaminophen) or medicines that contain acetaminophen with this medicine. Many non-prescription medicines contain acetaminophen. Always read the labels carefully. Ketorolac Tromethamine Oral tablet What is this medicine? KETOROLAC (tung toe ROLE ak) is a non-steroidal anti-inflammatory drug (NSAID). It is used for a short while to treat moderate to severe pain, including pain after surgery. It should not be used for more than 5 days. How should I use this medicine? Take this medicine by mouth with a full glass of water. Follow the directions on the prescription label. Take your medicine at regular intervals. Do not take your medicine more often than directed. Do not take more than the recommended dose. A special MedGuide will be given to you by the pharmacist with each prescription and refill. Be sure to read this information carefully each time. Talk to your middleware solutions architect regarding the use of this medicine in children. While this drug may be prescribed for children as young as 16 years of age for selected conditions, precautions do apply. Patients over 65 years old may have a stronger reaction and need a smaller dose. What side effects may I notice from receiving this medicine? Side effects that you should report to your doctor or health patient care coordinator as soon as possible: allergic reactions like skin rash, itching or hives, swelling of the face, lips, or tongue black or tarry stools breathing problems changes in vision chest pain high blood pressure nausea or vomiting redness, blistering, peeling or loosening of the skin, including inside the mouth severe abdominal pain slurred speech or weakness on one side of the body unexplained weight gain or swelling unusual bleeding or bruising unusually weak or tired yellowing of eyes or skin Side effects that usually do not require medical attention (report to your doctor or health patient care coordinator if they continue or are bothersome): diarrhea dizziness headache heartburn What may interact with this medicine? Do not take this medicine with any of the following medications: aspirin and aspirin-like medicines cidofovir methotrexate NSAIDs, medicines for pain and inflammation, like ibuprofen or naproxen pemetrexed probenecid This medicine may also interact with the following medications: alcohol alendronate alprazolam carbamazepine cyclosporine diuretics flavocoxid fluoxetine ginkgo lithium medicines for high blood pressure like enalapril medicines that affect platelets like pentoxifylline medicines that treat or prevent blood clots like heparin, warfarin muscle relaxants phenytoin steroid medicines like prednisone or cortisone thiothixene What if I miss a dose? If you miss a dose, take it as soon as you can. If it is almost time for your next dose, take only that dose. Do not take double or extra doses. Where should I keep my medicine? Keep out of the reach of children. Store at room temperature between 20 and 25 degrees C (68 and 77 degrees F). Throw away any unused medicine after the expiration date. What should I tell my health care provider before I take this medicine? They need to know if you have any of these conditions: asthma bleeding problems like hemophilia cigarette smoker drink more than 3 alcohol containing drinks a day heart disease or circulation problems such as heart failure or leg edema (fluid retention) high blood pressure kidney disease liver disease stomach bleeding or ulcers an unusual or allergic reaction to ketorolac, aspirin, other NSAIDs, other medicines, foods, dyes, or preservatives or trying to get breast-feeding What should I watch for while using this medicine? Tell your doctor or health patient care coordinator if your pain does not get better. Talk to your doctor before taking another medicine for pain. Do not treat yourself. This medicine does not prevent heart attack or stroke. In fact, this medicine may increase the chance of a heart attack or stroke. The chance may increase with longer use of this medicine and in people who have heart disease. If you take aspirin to prevent heart attack or stroke, talk with your doctor or health patient care coordinator. Do not take medicines such as ibuprofen and naproxen with this medicine. Side effects such as stomach upset, nausea, or ulcers may be more likely to occur. Many medicines available without a prescription should not be taken with this medicine. This medicine can cause ulcers and bleeding in the stomach and intestines at any time during treatment. Do not smoke cigarettes or drink alcohol. These increase irritation to your stomach and can make it more susceptible to damage from this medicine. Ulcers and bleeding can happen without warning symptoms and can cause . You may get drowsy or dizzy. Do not drive, use machinery, or do anything that needs mental alertness until you know how this medicine affects you. Do not stand or sit up quickly, especially if you are an older patient. This reduces the risk of dizzy or fainting spells. This medicine can cause you to bleed more easily. Try to avoid damage to your teeth and gums when you brush or floss your teeth. You have been given the following additional information: Flank Pain, Uncertain Cause Kidney Stone W/ Colic Hypokalemia Hydrocodone Bitartrate, Acetaminophen Oral tablet Ketorolac Tromethamine Oral tablet No driving or operating machinery while taking medication. Sedative medication was given during your visit. (Electronically signed by Maxim Rm MD 07/19/2016 22:46)
--- NOTE | 2016-07-19 22:46 | ED MED RECONCILIATION SUMMARY ---
Patient: MAC MARQUEZ Medication Reconciliation Report [facility] VisitID: [id number] [address] [place] [address] 41y, F Registration Date/Time: 07/19/2016 Weight: 79.8 kg Height/Length: 66 in. BMI: 28.4 ALLERGIES: No Known Drug Allergy The patient's Home Medications are listed below: NONE. The source(s) of the original Home Medication information: Not obtained. The following Medications were given to the patient in the Emergency Department: Zofran [IVP] IVP 4 mg, administered: 07/19/2016 6:17:00 AM Hydromorphone [IVP] IVP 0.5 mg, administered: 07/19/2016 6:17:00 AM IV NS IV Fluids bolus 1000 mL wide open, administered: 07/19/2016 6:17:00 AM Hydromorphone [IVP] IVP 0.5 mg, administered: 07/19/2016 6:33:00 AM IV NS IV Fluids bolus 1000 mL wide open, administered: 07/19/2016 6:35:00 AM Toradol [IVP] IVP 30 mg, administered: 07/19/2016 6:35:00 AM Hydromorphone [IVP] IVP 0.5 mg, administered: 07/19/2016 6:50:00 AM KCL [PO] PO 20 meq, administered: 07/19/2016 6:57:00 AM KCL [IVPB] IVPB bolus 0, then 20 meq, administered: 07/19/2016 7:08:00 AM Zofran [IVP] IVP 4 mg, administered: 07/19/2016 7:14:00 AM Hydromorphone [IVP] IVP 0.5 mg, administered: 07/19/2016 7:32:00 AM Dilaudid [IVP] IVP 0.5 mg, administered: 07/19/2016 7:55:00 AM IV NS IV Fluids bolus 0, then 1000 mL/hr, administered: 07/19/2016 7:59:00 AM Hydromorphone [IVP] IVP 0.5 mg, administered: 07/19/2016 9:17:00 AM The following Medications were prescribed to the patient: Hydrocodone/APAP 5mg/325mg: take 1 to 2 orally every 6 hours as needed for pain. Dispense fifteen (15). No refills. -- Maxim Rm MD Toradol 10 mg tablets: Take 1 tablet orally every 6 hours as needed. Dispense fifteen (15). No refills. Substitution is permissible. -- Maxim Rm MD Potassium Chloride 20 mEq: take 1 orally every 24 hours - No refills.(3 pills) -- Maxim Rm MD
--- NOTE | 2016-07-19 22:46 | ED MED RECONCILIATION SUMMARY ---
Patient: MAC MARQUEZ Medication Reconciliation Report [facility] VisitID: [id number] [address] [place] [address] 41y, F Registration Date/Time: 07/19/2016 Weight: 79.8 kg Height/Length: 66 in. BMI: 28.4 ALLERGIES: No Known Drug Allergy The patient's Home Medications are listed below: NONE. The source(s) of the original Home Medication information: Not obtained. The following Medications were given to the patient in the Emergency Department: Zofran [IVP] IVP 4 mg, administered: 07/19/2016 6:17:00 AM Hydromorphone [IVP] IVP 0.5 mg, administered: 07/19/2016 6:17:00 AM IV NS IV Fluids bolus 1000 mL wide open, administered: 07/19/2016 6:17:00 AM Hydromorphone [IVP] IVP 0.5 mg, administered: 07/19/2016 6:33:00 AM IV NS IV Fluids bolus 1000 mL wide open, administered: 07/19/2016 6:35:00 AM Toradol [IVP] IVP 30 mg, administered: 07/19/2016 6:35:00 AM Hydromorphone [IVP] IVP 0.5 mg, administered: 07/19/2016 6:50:00 AM KCL [PO] PO 20 meq, administered: 07/19/2016 6:57:00 AM KCL [IVPB] IVPB bolus 0, then 20 meq, administered: 07/19/2016 7:08:00 AM Zofran [IVP] IVP 4 mg, administered: 07/19/2016 7:14:00 AM Hydromorphone [IVP] IVP 0.5 mg, administered: 07/19/2016 7:32:00 AM Dilaudid [IVP] IVP 0.5 mg, administered: 07/19/2016 7:55:00 AM IV NS IV Fluids bolus 0, then 1000 mL/hr, administered: 07/19/2016 7:59:00 AM Hydromorphone [IVP] IVP 0.5 mg, administered: 07/19/2016 9:17:00 AM The following Medications were prescribed to the patient: Hydrocodone/APAP 5mg/325mg: take 1 to 2 orally every 6 hours as needed for pain. Dispense fifteen (15). No refills. -- Maxim Rm MD Toradol 10 mg tablets: Take 1 tablet orally every 6 hours as needed. Dispense fifteen (15). No refills. Substitution is permissible. -- Maxim Rm MD Potassium Chloride 20 mEq: take 1 orally every 24 hours - No refills.(3 pills) -- Maxim Rm MD
--- NOTE | 2016-07-19 22:46 | ED MAR SUMMARY ---
..... Medication Administration Record [facility] [address] [place] [address] Patient: MAC MARQUEZ Visit ID: [id number] 41y, F Weight: 79.8 kg Height/Length: 66 in BMI: 28.4 ALLERGIES: No Known Drug Allergy Given 06:17 07/19/2016 Eduard Cruz R.N. Medication Administered: HYDROMORPHONE [IVP], Dose: 0.5 mg IVP over 2 minute(s), Site: #1 right forearm. Medication Ordered: HYDROmorphone IV 0.5 mg (q 10 minutes for pain control up to 3). Given 06:17 07/19/2016 Eduard Cruz R.N. Medication Administered: ZOFRAN [IVP] (ONDANSETRON HCL), Dose: 4 mg IVP over 2 minute(s), Site: #1 right forearm. Medication Ordered: Zofran IV 4 mg (NOW). Start 06:17 07/19/2016 Eduard Cruz R.N. Medication Administered: IV NS (SALINE), Dose: IV Fluids, Bolus: 1000 mL wide open, Site: #1 right forearm. Medication Ordered: IV NS with Folic Acid 1 mg/L: initial bolus none -, then none - for X1 (NOW); Alexandru. Given 06:33 07/19/2016 Eduard Cruz R.N. Medication Administered: HYDROMORPHONE [IVP], Dose: 0.5 mg IVP over 2 minute(s), Site: #1 right forearm. Medication Ordered: HYDROmorphone IV 0.5 mg (q 10 minutes for pain control up to 3). Start 06:35 07/19/2016 Eduard Cruz R.N., Stop 07:56 07/19/2016 Leonel Saunders R.N. Medication Administered: IV NS (SALINE), Dose: IV Fluids, Bolus: 1000 mL wide open, Site: #1 right forearm. Medication Ordered: IV NS with Normal Saline 1 Liter: initial bolus 1000 mL (1000 mL/hr), then 1000 mL/hr for X1 (NOW); Alexandru. Given 06:35 07/19/2016 Eduard Cruz R.N. Medication Administered: TORADOL [IVP], Dose: 30 mg IVP over 2 minute(s), Site: #1 right forearm. Medication Ordered: Toradol IV 30 mg (NOW). Given 06:50 07/19/2016 Eduard Cruz RKiki Medication Administered: HYDROMORPHONE [IVP], Dose: 0.5 mg IVP over 2 minute(s), Site: #1 right forearm. Medication Ordered: HYDROmorphone IV 0.5 mg (q 10 minutes for pain control up to 3). Given 06:57 07/19/2016 Eduard Cruz R.N. Medication Administered: KCL [PO] (POTASSIUM CHLORIDE ER), Dose: 20 meq PO. Medication Ordered: KCl PO 20 meq (NOW). Start 07:08 07/19/2016 Eduard Cruz R.N., Stop 09:27 07/19/2016 Maranda Dominguez RKiki Medication Administered: KCL [IVPB] (POTASSIUM CHLORIDE), Dose: 20 meq IVPB over 2 hour(s), Dispensed: 100 mL bag, Site: #1 right forearm. Medication Ordered: KCl IV 20 meq/100mL (Run no faster than 10 units/hr, HIGH ALERT MEDICATION, NOW, Run no faster than 10 mEq/hr). Given 07:14 07/19/2016 Eduard Cruz R.N. Medication Administered: ZOFRAN [IVP] (ONDANSETRON HCL), Dose: 4 mg IVP over 2 minute(s), Site: #1 right forearm. Medication Ordered: Zofran IV 4 mg (NOW). Given 07:32 07/19/2016 Maranda Dominguez RKiki Medication Administered: HYDROMORPHONE [IVP], Dose: 0.5 mg IVP over 2 minute(s), Site: #1 right forearm. Medication Ordered: HYDROmorphone IV 0.5 mg (q 10 minutes for pain control up to 3). Given 07:55 07/19/2016 Leonel Saunders RVeroNVero Medication Administered: DILAUDID [IVP] (HYDROMORPHONE HCL PF), Dose: 0.5 mg IVP over 2 minute(s), Site: #1 right forearm. Medication Ordered: Dilaudid IV 0.5 mg (May Repeat q 15 minutes for total of 3 mg). Start 07:59 07/19/2016 Leonel Saunders RKiki, Stop 09:27 07/19/2016 Maranda oDminguez RKiki Medication Administered: IV NS (SALINE), Dose: IV Fluids over 1 hour(s), Rate: 1000 mL/hr, Dispensed: 1000 mL bag, Site: #1 right forearm. Medication Ordered: IV NS with Normal Saline 1 Liter: initial bolus 1000 mL (1000 mL/hr), then 1000 mL/hr for X1 (NOW); Alexandru. Given 09:17 07/19/2016 Maranda Dominguez, RVeroN. Medication Administered: HYDROMORPHONE [IVP], Dose: 0.5 mg IVP over 2 minute(s), Site: #1 right forearm. Medication Ordered: HYDROmorphone IV 0.5 mg (q 10 minutes for pain control up to 3).
--- NOTE | 2016-07-19 22:46 | ED MAR SUMMARY ---
..... Medication Administration Record [facility] [address] [place] [address] Patient: MAC MARQUEZ Visit ID: [id number] 41y, F Weight: 79.8 kg Height/Length: 66 in BMI: 28.4 ALLERGIES: No Known Drug Allergy Given 06:17 07/19/2016 Eduard Cruz R.N. Medication Administered: HYDROMORPHONE [IVP], Dose: 0.5 mg IVP over 2 minute(s), Site: #1 right forearm. Medication Ordered: HYDROmorphone IV 0.5 mg (q 10 minutes for pain control up to 3). Given 06:17 07/19/2016 Eduard Cruz R.N. Medication Administered: ZOFRAN [IVP] (ONDANSETRON HCL), Dose: 4 mg IVP over 2 minute(s), Site: #1 right forearm. Medication Ordered: Zofran IV 4 mg (NOW). Start 06:17 07/19/2016 Eduard Cruz R.N. Medication Administered: IV NS (SALINE), Dose: IV Fluids, Bolus: 1000 mL wide open, Site: #1 right forearm. Medication Ordered: IV NS with Folic Acid 1 mg/L: initial bolus none -, then none - for X1 (NOW); Alexandru. Given 06:33 07/19/2016 Eduard Cruz R.N. Medication Administered: HYDROMORPHONE [IVP], Dose: 0.5 mg IVP over 2 minute(s), Site: #1 right forearm. Medication Ordered: HYDROmorphone IV 0.5 mg (q 10 minutes for pain control up to 3). Start 06:35 07/19/2016 Eduard Cruz R.N., Stop 07:56 07/19/2016 Leonel Saunders R.N. Medication Administered: IV NS (SALINE), Dose: IV Fluids, Bolus: 1000 mL wide open, Site: #1 right forearm. Medication Ordered: IV NS with Normal Saline 1 Liter: initial bolus 1000 mL (1000 mL/hr), then 1000 mL/hr for X1 (NOW); Alexandru. Given 06:35 07/19/2016 Eduard Cruz R.N. Medication Administered: TORADOL [IVP], Dose: 30 mg IVP over 2 minute(s), Site: #1 right forearm. Medication Ordered: Toradol IV 30 mg (NOW). Given 06:50 07/19/2016 Eduard Cruz RKiki Medication Administered: HYDROMORPHONE [IVP], Dose: 0.5 mg IVP over 2 minute(s), Site: #1 right forearm. Medication Ordered: HYDROmorphone IV 0.5 mg (q 10 minutes for pain control up to 3). Given 06:57 07/19/2016 Eduard Cruz R.N. Medication Administered: KCL [PO] (POTASSIUM CHLORIDE ER), Dose: 20 meq PO. Medication Ordered: KCl PO 20 meq (NOW). Start 07:08 07/19/2016 Eduard Cruz R.N., Stop 09:27 07/19/2016 Maranda Dominguez RKiki Medication Administered: KCL [IVPB] (POTASSIUM CHLORIDE), Dose: 20 meq IVPB over 2 hour(s), Dispensed: 100 mL bag, Site: #1 right forearm. Medication Ordered: KCl IV 20 meq/100mL (Run no faster than 10 units/hr, HIGH ALERT MEDICATION, NOW, Run no faster than 10 mEq/hr). Given 07:14 07/19/2016 Eduard Cruz R.N. Medication Administered: ZOFRAN [IVP] (ONDANSETRON HCL), Dose: 4 mg IVP over 2 minute(s), Site: #1 right forearm. Medication Ordered: Zofran IV 4 mg (NOW). Given 07:32 07/19/2016 Maranda Dominguez RKiki Medication Administered: HYDROMORPHONE [IVP], Dose: 0.5 mg IVP over 2 minute(s), Site: #1 right forearm. Medication Ordered: HYDROmorphone IV 0.5 mg (q 10 minutes for pain control up to 3). Given 07:55 07/19/2016 Leonel Saunders RVeroNVero Medication Administered: DILAUDID [IVP] (HYDROMORPHONE HCL PF), Dose: 0.5 mg IVP over 2 minute(s), Site: #1 right forearm. Medication Ordered: Dilaudid IV 0.5 mg (May Repeat q 15 minutes for total of 3 mg). Start 07:59 07/19/2016 Leonel Saunders RKiki, Stop 09:27 07/19/2016 Maranda Dominguez RKiki Medication Administered: IV NS (SALINE), Dose: IV Fluids over 1 hour(s), Rate: 1000 mL/hr, Dispensed: 1000 mL bag, Site: #1 right forearm. Medication Ordered: IV NS with Normal Saline 1 Liter: initial bolus 1000 mL (1000 mL/hr), then 1000 mL/hr for X1 (NOW); Alexandru. Given 09:17 07/19/2016 Maranda Dominguez, RVeroN. Medication Administered: HYDROMORPHONE [IVP], Dose: 0.5 mg IVP over 2 minute(s), Site: #1 right forearm. Medication Ordered: HYDROmorphone IV 0.5 mg (q 10 minutes for pain control up to 3).
== END 2016-07-19 09:30 | disposition home or self-care (01) ==
LOC: ED SRH 05:40
DX: E87.6 Hypokalemia (principal); R10.9 Unspecified abdominal pain; R93.5 Abnormal findings on diagnostic imaging of other abdominal regions, including retroperitoneum; F17.210 Nicotine dependence, cigarettes, uncomplicated
CPT/HCPCS: 90004; 90100; 90469; 92235; 92530; 92720; 93070; 95059

== ENCOUNTER 2016-07-20 11:08 | Emergency (ER) | payer SELFPAY ==
--- NOTE | 2016-07-20 15:34 | DIAGNOSTIC IMAGING REPORT ---
PROCEDURE: CT ABDOMEN/PELVIS W/O CONTRAST INDICATION: ESCALATING ABDOMINAL PAIN TECHNIQUE: Noncontrast axial images were obtained of the entire abdomen and pelvis with sagittal and coronal reformations. COMPARISON: CT abdomen/pelvis 07/19/2016 FINDINGS: ABDOMEN: Lung base are clear. Heart size is normal. Cholecystectomy. Liver, pancreas, spleen, adrenal glands and kidneys are normal. Retroaortic left renal vein. No renal calculi or hydronephrosis. Normal abdominal aorta. PELVIS: Previously noted sub mm right pelvic calcification has resolved consistent with a resolved ureteral calculus. Normal appendix. 1 cm fibroid. No free fluid or inflammatory changes. IMPRESSION: 1. Interval passage of punctate sub mm right ureteral calculus 2. Fibroid 3. Cholecystectomy 4. Results discussed with Dr. Richardson All CT scans at this facility use dose modulation, iterative reconstruction, and/or weight-based dosing when appropriate to reduce radiation dose to as low as reasonably achievable.
--- NOTE | 2016-07-24 07:43 | ED MED RECONCILIATION SUMMARY ---
Patient: MAC MARQUEZ Medication Reconciliation Report [facility] VisitID: [id number] [address] [place] [address] 41y, F Registration Date/Time: 07/20/2016 Weight: 78.4 kg Height/Length: 66 in. BMI: 27.9 ALLERGIES: No Known Drug Allergy The patient's Home Medications are listed below: NONE. The source(s) of the original Home Medication information: patient The following Medications were given to the patient in the Emergency Department: IV NS IV Fluids bolus 0, then 999 mL/hr, administered: 07/20/2016 12:10:00 PM Zofran [IVP] IVP 8 mg, administered: 07/20/2016 1:24:00 PM Dilaudid [IVP] IVP 1 mg, administered: 07/20/2016 1:25:00 PM Toradol [IVP] IVP 30 mg, administered: 07/20/2016 1:25:00 PM IV NS IV Fluids bolus 0, then 999 mL/hr, administered: 07/20/2016 1:40:00 PM Dilaudid [IVP] IVP 0.5 mg, administered: 07/20/2016 2:30:00 PM The following Medications were prescribed to the patient: None.
--- NOTE | 2016-07-24 07:43 | ED ORDER SUMMARY ---
..... Patient: MAC MARQUEZ OrderSheet [facility] VisitID: [id number] [address] [place] [address] 41y, F Registration Date/Time: 07/20/2016 ORDER SHEET Weight: 78.4 kg (stated) Allergies: No Known Drug Allergy GENERAL ORDERS: UA-Culture if indicated Urgent (13:08 07/20/2016 Sharon DE LEON) (Ack 13:16 Sully) (13:55 Sully) CT Abd/Pel wo Cont Urgent (14:33 07/20/2016 Sharon DE LEON) (Ack 14:44 Sully) (15:41 HKone R.N.) MEDICATION ORDERS: Flomax PO 0.4 mg (Do not crush or chew, NOW) (15:26 07/20/2016 Sharon DE LEON) (Cancelled: Patient Left15:30 HKone R.N.) IV FLUIDS: IV NS : initial bolus none -, then 1000 mL/hr for X1 (NOW) (12:07 07/20/2016 HKone R.N. per protocol) (12:10 HKone R.N.) Toradol IV 30 mg (NOW) (13:07 07/20/2016 Sahron DE LEON) (Ack 13:10 Ciera R.N.) (13:25 HKone R.N.) Dilaudid IV 1 mg (HIGH ALERT MEDICATION, NOW) (13:08 07/20/2016 Sharon DE LEON) (Ack 13:10 Ciera R.N.) (13:25 HKone R.N.) Zofran IV 8 mg (NOW) (13:09 07/20/2016 Sharon DE LEON) (Ack 13:10 Ciera R.N.) (13:24 HKone R.N.) IV NS : initial bolus none -, then 1000 mL/hr for X1 (NOW) (13:47 07/20/2016 HKone R.N. verbal order read back to Sharon DE LEON) (13:49 HKone R.N.) Dilaudid IV 0.5 mg (NOW) (14:37 07/20/2016 HKone R.N. verbal order read back to Sharon DE LEON) (14:38 HKone R.N.) Dilaudid IV 1 mg (HIGH ALERT MEDICATION, NOW) (14:54 07/20/2016 Sharon DE LEON) (Ack 15:23 Libby Rogel) (Cancelled: Patient Left15:30 Libby Rogel) ORDER SHEET NOTES: [Electronically signed by Helen Minor R.N. (15:42 07/20/2016)] [Electronically signed by Nica Richardson MD (07:43 07/24/2016)] [Electronically locked/signed by Helen Minor R.N. (15:42 07/20/2016)]
--- NOTE | 2016-07-24 07:43 | ED DISCHARGE INSTRUCTIONS ---
Patient: MAC MARQUEZ General Instructions [facility] VisitID: [id number] [address] [place] [address] 41y, F Registration Date/Time: 07/20/2016 Acute abdominal pain of unknown cause. (Electronically signed by Nica Richardson MD 07/24/2016 7:43)
--- NOTE | 2016-07-24 07:43 | ED MED RECONCILIATION SUMMARY ---
Patient: MAC MARQUEZ Medication Reconciliation Report [facility] VisitID: [id number] [address] [place] [address] 41y, F Registration Date/Time: 07/20/2016 Weight: 78.4 kg Height/Length: 66 in. BMI: 27.9 ALLERGIES: No Known Drug Allergy The patient's Home Medications are listed below: NONE. The source(s) of the original Home Medication information: patient The following Medications were given to the patient in the Emergency Department: IV NS IV Fluids bolus 0, then 999 mL/hr, administered: 07/20/2016 12:10:00 PM Zofran [IVP] IVP 8 mg, administered: 07/20/2016 1:24:00 PM Dilaudid [IVP] IVP 1 mg, administered: 07/20/2016 1:25:00 PM Toradol [IVP] IVP 30 mg, administered: 07/20/2016 1:25:00 PM IV NS IV Fluids bolus 0, then 999 mL/hr, administered: 07/20/2016 1:40:00 PM Dilaudid [IVP] IVP 0.5 mg, administered: 07/20/2016 2:30:00 PM The following Medications were prescribed to the patient: None.
--- NOTE | 2016-07-24 07:43 | ED MAR SUMMARY ---
..... Medication Administration Record [facility] [address] [place] [address] Patient: MAC MARQUEZ Visit ID: [id number] 41y, F Weight: 78.4 kg Height/Length: 66 in BMI: 27.9 ALLERGIES: No Known Drug Allergy Start 12:10 07/20/2016 Helen Minor R.N., Stop 13:07/20/2016 Helen Minor R.N. Medication Administered: IV NS (SALINE), Dose: IV Fluids over 1 hour(s), Rate: 999 mL/hr, Dispensed: 1000 mL bag, Site: #1 right hand. Medication Ordered: IV NS : initial bolus none -, then 1000 mL/hr for X1 (NOW). Given 13:24 07/20/2016 Helen Minor R.N. Medication Administered: ZOFRAN [IVP] (ONDANSETRON HCL), Dose: 8 mg IVP over 1 minute(s), Site: #1 right hand. Medication Ordered: Zofran IV 8 mg (NOW). Given 13:07/20/2016 Helen Minor R.N. Medication Administered: TORADOL [IVP], Dose: 30 mg IVP over 1 minute(s), Site: #1 right hand. Medication Ordered: Toradol IV 30 mg (NOW). Given 13:07/20/2016 Helen Minor R.N. Medication Administered: DILAUDID [IVP] (HYDROMORPHONE HCL PF), Dose: 1 mg IVP over 1 minute(s), Site: #1 right hand. Medication Ordered: Dilaudid IV 1 mg (HIGH ALERT MEDICATION, NOW). Start 13:40 07/20/2016 Helen Minor R.N., Stop 14:40 07/20/2016 Helen Minor R.N. Medication Administered: IV NS (SALINE), Dose: IV Fluids over 1 hour(s), Rate: 999 mL/hr, Dispensed: 1000 mL bag, Site: #1 right hand. Medication Ordered: IV NS : initial bolus none -, then 1000 mL/hr for X1 (NOW). Given 14:30 07/20/2016 Helen Minor R.N. Medication Administered: DILAUDID [IVP] (HYDROMORPHONE HCL PF), Dose: 0.5 mg IVP over 1 minute(s), Site: #1 right hand. Medication Ordered: Dilaudid IV 0.5 mg (NOW).
--- NOTE | 2016-07-24 07:43 | ED NURSING NOTES ---
Clinical Report - Nurses [facility] [address] [place] [address] 07/20/2016 11:08 Patient: MAC MARQUEZ TRIAGE Triage time 1115. Acuity: LEVEL 3. KENROY COMA SCORE: [place] Coma Scale: 15- eyes open spontaneously (4); best verbal response- oriented x 4 (5); best motor response- obeys commands (6). --11:18 Helen Minor R.N. 11:15 07/20/16. BP: 178/118. HR: 67. RR: 20 (labored). O2 saturation: 100% on room air. Temp: 98 F (oral). Pain level now: 02/27. --11:18 Helen Minor R.N. Chief Complaint: RIGHT-SIDED FLANK PAIN. 11:15. --12:00 Helen Minor R.N. Weight: 78.4 kg stated. Height/Length: 66 inches Per Patient. BMI: 27.9. --11:15 Helen Minor R.N. Medications None. --11:17 Helen Minor R.N. Medication/allergy information source: the patient. --11:18 Helen Minor R.N. Allergies No Known Drug Allergy. --11:17 Helen Minro R.N. History Arrived by private vehicle. Historian: patient. Unaccompanied. Primary physician (none). ( pt returns with severe right abdominal pain radiating to right side of back . pt states she was seen yesterday here and dx with kidney stones. pain worse today.). This started just prior to arrival. Treatment MANAGER PAYROLL: None. PAST MEDICAL HX: Last normal menstrual period- 07/19/2016. SOCIAL HX: Never smoker. No alcohol use or drug use. FALL RISK ASSESSMENT: Fall risk assessment completed. No fall risk identified. NUTRITIONAL RISK ASSESSMENT: The nutritional risk assessment revealed no deficiencies. FUNCTIONAL ASSESSMENT: Functional assessment: no impairments noted. LEARNING NEEDS ASSESSMENT: The learning needs assessment revealed no barriers. SKIN INTEGRITY ASSESSMENT: Skin integrity risk assessment completed. No skin integrity risk identified. --11:18 Helen Minor R.N. PROBLEMS: Hypokalemia. --11:17 Helen Minor R.N. Ureterolithiasis [RuleOut]. Flank Pain [RuleOut]. --11:17 Helen Minor R.N. ADDITIONAL SURGERIES: C section. Tubal Ligation. --11:17 Helen Minor R.N. Interventions ID band on patient. To treatment room. --11:18 Helen Minor R.N. PHYSICAL ASSESSMENT 11:20 unable to assess pt's abdomen. pt moaning/moving around on stretcher. deferred to MD. To room via wheelchair. GENERAL / NEURO / PSYCH: Alert. Oriented X 4. Appears in pain and anxious. HEENT: Mucous membranes are pink. RESPIRATORY: Respirations not labored. Breath sounds within normal limits. SKIN: Skin is warm and dry. --11:53 Helen Minor R.N. NURSING PROGRESS NOTES Patient gowned. Two patient identifiers checked. Call light placed in reach. Side rails up x 1. Bed placed in lowest position. Brakes of bed on. Patient ready for evaluation. --11:19 Helen Minor R.N. IV attempted no success. pt moaning and moving around on stretcher. --11:29 Helen Minor R.N. 11:55 pt came to nurse's station asking for MD. pt requesting pain meds. pt told MD aware. --12:02 Helen Minor R.N. 11:40 07/20/2016 Site #1 started via IV in the right hand with an 22g angiocath, with aseptic technique and good blood return; one attempt. Saline lock flushed with 10 mL saline (by GERMANIA Padron. unable to draw blood.). --12:10 Helen Minor R.N. 12:10 07/20/2016 Started bag #1 1000 mL IV Fluids IV NS (Saline); at 999 mL/hr over 1 hour(s) via site #1 via IV pump. Allergies verified and confirmed 5 rights. IV patency established. IV site checked: no pain, redness, or swelling. IV flushed thoroughly pre- and post-medication administration. --12:10 Helen Minor R.N. 12:48 pt to desk again, moaning and asking for medicine. --12:48 Roopa Fritz R.N. 13:10 07/20/2016 IV Fluids IV NS Discontinued: completed. Total amount infused: 1000 ml mL. --14:36 Helen Minor R.N. 13:24 07/20/2016 Zofran (Ondansetron HCl) IVP 8 mg given over 1 minute(s) via site #1. Allergies verified and confirmed 5 rights. IV patency established. IV site checked: no pain, redness, or swelling. IV flushed thoroughly pre- and post-medication administration. IVP given by RN. --13:24 Helen Minor R.N. 13:25 07/20/2016 Dilaudid (HYDROmorphone HCl PF) IVP 1 mg given over 1 minute(s) via site #1. Allergies verified, confirmed 5 rights and sedative warning given to the patient. IV patency established. IV site checked: no pain, redness, or swelling. IV flushed thoroughly pre- and post-medication administration. IVP given by RN. --13:25 Helen Minor R.N. 13:25 07/20/2016 Toradol IVP 30 mg given over 1 minute(s) via site #1. Allergies verified and confirmed 5 rights. IV patency established. IV site checked: no pain, redness, or swelling. IV flushed thoroughly pre- and post-medication administration. IVP given by RN. --13:25 Helen Minor R.N. pt had emesis of 02:00 ml. pt given new sick bag, warm blanket and bed adjusted to her comfort. notified MD of pt vomiting. --13:26 Helen Minor R.N. <<STRICKEN ENTRY-- correction to prior entry - emesis of 02:00 ml. --13:27 Helen Minor R.N. --END STRIKE>> Correction --13:27 Helen Minor R.N. correction to prior entry - emesis output of two hundred ml. --13:30 Helen Minor R.N. 13:40. Patient ID band checked: patient confirmed. Clean catch urine collected with return of yellow-colored urine, sediment noted; sample sent to lab for culture. Specimen labeled in the presence of the patient. --13:46 Helen Minor R.N. 13:40 07/20/2016 Started bag #1 1000 mL IV Fluids IV NS (Saline); at 999 mL/hr over 1 hour(s) via site #1 via IV pump. Allergies verified and confirmed 5 rights. IV patency established. IV site checked: no pain, redness, or swelling. IV flushed thoroughly pre- and post-medication administration. --13:49 Helen Minor R.N. 13:30 07/20/16. BP: 184/112. HR: 70. RR: 20 (labored). O2 saturation: 99% on room air. Pain level now: 02/27. --13:50 Helen Minor R.N. 14:34 07/20/16. BP: 176/119. HR: 69 (regular). RR: 20 (unlabored). O2 saturation: 96% on room air. Pain level now: 01/28. --14:35 Helen Minor R.N. pt notified she will have a CT scan, given warm blanket. --14:35 Helen Minor R.N. 14:30 07/20/2016 Dilaudid (HYDROmorphone HCl PF) IVP 0.5 mg given over 1 minute(s) via site #1. Allergies verified, confirmed 5 rights and sedative warning given to the patient. IV patency established. IV site checked: no pain, redness, or swelling. IV flushed thoroughly pre- and post-medication administration. IVP given by RN. --14:38 Helen Minor R.N. 14:40 07/20/2016 IV Fluids IV NS Discontinued: bag #2 completed. Total amount infused: 1000 ml mL. IV patency established. IV site checked: no pain, redness, or swelling. IV flushed thoroughly. --15:38 Helen Minor R.N. 14:[address] scan, requesting more pain meds. --15:39 Helen Minor R.N. 15:30 notified pt eloped. --15:42 Helen Minor R.N. DISPOSITION / DISCHARGE Departure time: 1530 pt pulled own IV out and eloped. --15:40 Helen Minor R.N. 15:30 07/20/16. BP not taken due to patient not present. HR not taken due to patient not present. RR not taken due to patient not present. O2 saturation not taken due to patient not present. Temp not taken due to patient not present. Pain level now not taken due to patient not present. --15:40 Helen Minor R.N. Locked/Released at 07/20/2016 15:42 by Helen Minor R.N.
--- NOTE | 2016-07-24 07:43 | ED DISCHARGE INSTRUCTIONS ---
Patient: MAC MARQUEZ General Instructions [facility] VisitID: [id number] [address] [place] [address] 41y, F Registration Date/Time: 07/20/2016 Acute abdominal pain of unknown cause. (Electronically signed by Nica Richardson MD 07/24/2016 7:43)
--- NOTE | 2016-07-24 07:43 | ED MAR SUMMARY ---
..... Medication Administration Record [facility] [address] [place] [address] Patient: MAC MARQUEZ Visit ID: [id number] 41y, F Weight: 78.4 kg Height/Length: 66 in BMI: 27.9 ALLERGIES: No Known Drug Allergy Start 12:10 07/20/2016 Helen Minor R.N., Stop 13:07/20/2016 Helen Minor R.N. Medication Administered: IV NS (SALINE), Dose: IV Fluids over 1 hour(s), Rate: 999 mL/hr, Dispensed: 1000 mL bag, Site: #1 right hand. Medication Ordered: IV NS : initial bolus none -, then 1000 mL/hr for X1 (NOW). Given 13:24 07/20/2016 Helen Minor R.N. Medication Administered: ZOFRAN [IVP] (ONDANSETRON HCL), Dose: 8 mg IVP over 1 minute(s), Site: #1 right hand. Medication Ordered: Zofran IV 8 mg (NOW). Given 13:07/20/2016 Helen Minor R.N. Medication Administered: TORADOL [IVP], Dose: 30 mg IVP over 1 minute(s), Site: #1 right hand. Medication Ordered: Toradol IV 30 mg (NOW). Given 13:07/20/2016 Helen Minor R.N. Medication Administered: DILAUDID [IVP] (HYDROMORPHONE HCL PF), Dose: 1 mg IVP over 1 minute(s), Site: #1 right hand. Medication Ordered: Dilaudid IV 1 mg (HIGH ALERT MEDICATION, NOW). Start 13:40 07/20/2016 Helen Minor R.N., Stop 14:40 07/20/2016 Helen Minor R.N. Medication Administered: IV NS (SALINE), Dose: IV Fluids over 1 hour(s), Rate: 999 mL/hr, Dispensed: 1000 mL bag, Site: #1 right hand. Medication Ordered: IV NS : initial bolus none -, then 1000 mL/hr for X1 (NOW). Given 14:30 07/20/2016 Helen Minor R.N. Medication Administered: DILAUDID [IVP] (HYDROMORPHONE HCL PF), Dose: 0.5 mg IVP over 1 minute(s), Site: #1 right hand. Medication Ordered: Dilaudid IV 0.5 mg (NOW).
--- NOTE | 2016-07-24 07:43 | ED ORDER SUMMARY ---
..... Patient: MAC MARQUEZ OrderSheet [facility] VisitID: [id number] [address] [place] [address] 41y, F Registration Date/Time: 07/20/2016 ORDER SHEET Weight: 78.4 kg (stated) Allergies: No Known Drug Allergy GENERAL ORDERS: UA-Culture if indicated Urgent (13:08 07/20/2016 Sharon DE LEON) (Ack 13:16 Sully) (13:55 Sully) CT Abd/Pel wo Cont Urgent (14:33 07/20/2016 Sharon DE LEON) (Ack 14:44 Sully) (15:41 HKone R.N.) MEDICATION ORDERS: Flomax PO 0.4 mg (Do not crush or chew, NOW) (15:26 07/20/2016 Sharon DE LEON) (Cancelled: Patient Left15:30 HKone R.N.) IV FLUIDS: IV NS : initial bolus none -, then 1000 mL/hr for X1 (NOW) (12:07 07/20/2016 HKone R.N. per protocol) (12:10 HKone R.N.) Toradol IV 30 mg (NOW) (13:07 07/20/2016 Sharon DE LEON) (Ack 13:10 Ciera R.N.) (13:25 HKone R.N.) Dilaudid IV 1 mg (HIGH ALERT MEDICATION, NOW) (13:08 07/20/2016 Sharon DE LEON) (Ack 13:10 Ciera R.N.) (13:25 HKone R.N.) Zofran IV 8 mg (NOW) (13:09 07/20/2016 Sharon DE LEON) (Ack 13:10 Ciera R.N.) (13:24 HKone R.N.) IV NS : initial bolus none -, then 1000 mL/hr for X1 (NOW) (13:47 07/20/2016 HKone R.N. verbal order read back to Sharon DE LEON) (13:49 HKone R.N.) Dilaudid IV 0.5 mg (NOW) (14:37 07/20/2016 HKone R.N. verbal order read back to Sharon DE LEON) (14:38 HKone R.N.) Dilaudid IV 1 mg (HIGH ALERT MEDICATION, NOW) (14:54 07/20/2016 Sharon DE LEON) (Ack 15:23 Libby Rogel) (Cancelled: Patient Left15:30 Libby Rogel) ORDER SHEET NOTES: [Electronically signed by Helen Minor R.N. (15:42 07/20/2016)] [Electronically signed by Nica Richardson MD (07:43 07/24/2016)] [Electronically locked/signed by Helen Minor R.N. (15:42 07/20/2016)]
--- NOTE | 2016-07-24 07:43 | ED CLINICAL REPORT ---
Clinical Report - Physicians/Mid Levels [facility] [address] [place] [address] 07/20/2016 11:08 Patient: MAC MARQUEZ Time Seen: 11:31. Arrived- By private vehicle. Historian- patient. HISTORY OF PRESENT ILLNESS Chief Complaint: ABDOMINAL PAIN and FLANK PAIN. At its maximum, severity described as severe. When seen in the E.D., severity described as severe. Modifying factors. Not worsened by anything. Not relieved by anything. It is described as "pain", sharp and stabbing and it is described as located in the right abdomen. This started yesterday and is still present and now worse. The patient has had nausea and vomiting. No loss of appetite or diarrhea. Similar symptoms previously: Milder. Recent medical care: The patient was seen recently at this facility in the emergency department. ( PT was seen here yesterday, and had an extensive work-up, including labs, UA and CT scan. The CT showed a punctate stone in the right distal ureter, but was otherwise negative.). REVIEW OF SYSTEMS No constipation, black stools, hematemesis, difficulty with urination or pain with urination. No urinary frequency, bloody stools, fever, headache or sore throat. No blurred vision, chest pain, difficulty breathing, cough or joint pain. No skin rash, chills or back pain. Denies current . All systems otherwise negative, except as recorded above. PAST HISTORY Problems: Hypokalemia. Additional Surgeries: C section. Tubal Ligation. Medications: None. Allergies: No Known Drug Allergy. SOCIAL HISTORY Never smoker. No alcohol use or drug use. ADDITIONAL NOTES The nursing notes have been reviewed. PHYSICAL EXAM Vital Signs: 07/20/2016 11:15 BP: 178/118. HR: 67. RR: 20. O2 saturation: 100%. Temp: 98 F. Pain level now: 10/10. Have been reviewed. Appearance: Alert. Oriented X3. Patient in moderate distress. (Pt is writhing and crying, clutching her side.). Distress appears due to pain and anxiety. Eyes: Pupils equal, round and reactive to light. Eyes normal inspection. ENT: Nose normal. Neck: Normal inspection. CVS: Normal heart rate and rhythm. Heart sounds normal. Pulses normal. Respiratory: No respiratory distress. Breath sounds normal. Abdomen: Soft. Moderate tenderness in the right side of the abdomen. No guarding or rebound tenderness. Back: Normal inspection. Skin: Skin warm and dry. Normal skin color. No rash. Normal skin turgor. Extremities: Extremities exhibit normal ROM. No lower extremity edema. Neuro: No motor deficit. No sensory deficit. (Grossly oriented.). LABS, X-RAYS, AND EKG Abdominal CT: Normal study. Normal aorta. Normal liver, spleen, pancreas, gallbladder and adrenals. Normal kidneys. Uterus normal. Adnexa normal. Bladder normal. Appendix normal. No mass. No free fluid. No bony lesion. No diverticulitis. Study type: renal stone evaluation; abdomen and pelvis. Abdominal CT performed without contrast. The study was independently viewed by me, interpreted by the radiologist and contemporaneously by me and discussed with the radiologist. Prior studies were not available for comparison. Laboratory Tests: UA-Culture if indicated: (PAGE: 07/20/2016 13:40) ( [id number] 07/20/2016 13:56) Final results Test Result Flag Units (Reference) URINE COLOR YELLOW URINE APPEARANCE CLEAR URINE GLUCOSE NEGATIVE (NEGATIVE) URINE BILIRUBIN NEGATIVE (NEGATIVE) URINE KETONE NEGATIVE (NEGATIVE) URINE SPECIFIC GRAVITY 1.020 (1.010-1.030) URINE PH 7.0 (5.0-8.0) URINE PROTEIN NEGATIVE (NEGATIVE) URINE UROBILINOGEN 0.2 EU/dL (0.2-1.0) URINE NITRITE NEGATIVE (NEGATIVE) URINE BLOOD NEGATIVE (NEGATIVE) URINE LEUK ESTERASE NEGATIVE (NEGATIVE) URINE RBC NONE SEEN rbc/hpf (0-1) URINE WBC RARE wbc/hpf (0-1) URINE EPITHELIAL CELLS 0-1 EPI/hpf (0-5) URINE BACTERIA NONE SEEN (NONE SEEN) URINE COMMENT CULT NOT INDICATED URINE CULTURES ARE SET-UP BASED ON THE FOLLOWING CRITERIA:POSITIVE NITRITEPOSITIVE LEUKOCYTE ESTERASEGREATER THAN 10 WHITE BLOOD CELLSMODERATE (2+) OR GREATER BACTERIA . Pulse Oximetry: 07/20/2016 11:15 O2 saturation: 100%. (FIO2 - room air). Interpretation: normal. PROGRESS AND PROCEDURES Course of Care: PT was treated symptomatically with IV fluids, Zofran, Dilaudid, and Toradol. Based on the results of the pt's CT yesterday, I did not feel that she should be experiencing such severe pain. However, given the pt's clinical appearance, I did opt to repeat the CT scan. This was done, and found to be negative. Pt was given another dose of Dilaudid at her request, but became irate because she felt she was not served quickly enough. Pt ended up pulling her IV out and leaving the ED before I could speak with her about her results. Patient/family counseled. Old medical records reviewed. Disposition: Discharged (Pt eloped from the ED, but plan was to discharge.). Condition: stable. CLINICAL IMPRESSION Acute abdominal pain of unknown cause. (Electronically signed by Nica Richardson MD 07/24/2016 7:43)
== END 2016-07-20 15:31 | disposition home or self-care (01) ==
LOC: ED SRH 11:08
DX: R10.9 Unspecified abdominal pain (principal); Z87.442 Personal history of urinary calculi
CPT/HCPCS: 90004